=== PATIENT | male | born 1960 | race Caucasian/White ===

== ENCOUNTER 2023-03-20 13:18 | Emergency (ER) | payer BC ==
[2023-03-20] MEDS ORDERED: Sodium Chloride 0.9% 10 ML Syringe FLUSH PRN (13:39)
[2023-03-20 13:41] VITALS: BP 142/85; PULSE 99
[2023-03-20] MEDS ORDERED: Ketorolac 30 MG/ML SDV IVPUSH ONE (13:43)
[2023-03-20] MEDS ORDERED: Sodium Chloride 0.9% 1,000 ML IV ONE (13:43)
[2023-03-20 14:05] LABS: BASOPHILS PERCENT AUTO 0.4 % (0.0-1.0); EOSINOPHILS PERCENT AUTO 1.1 % (1.0-3.0); HEMATOCRIT 48.4 % (40.0-54.0); HEMOGLOBIN 16.1 g/dL (14.0-18.0); LYMPHOCYTES PERCENT AUTO 17.6 % (20.5-50.1); MEAN CORPUSCULAR HEMOGLOBIN 29.9 pg (27.0-34.0); MEAN CORPUSCULAR HGB CONC 33.3 g/dL (33.0-35.0); MONOCYTES PERCENT AUTO 7.9 % (2-8); PLATELET COUNT,PLT 346 10^3/uL (150-450); RED BLOOD CELL COUNT 5.38 10^6/uL (4.6-6.2)
[2023-03-20 14:20] LABS: A/G RATIO 0.9; ALANINE AMINOTRANSFERASE,ALT 26 U/L (16-63); ALBUMIN 3.9 g/dL (3.4-5.0); ALKALINE PHOSPHATASE 62 U/L (46-116); ASPARTATE AMNIOTRANSFERASE,AST 22 U/L (15-37); BILIRUBIN TOTAL 0.6 mg/dL (0.2-1.0); BLOOD UREA NITROGEN,BUN 21 mg/dL (7-18); BUN/CREATININE RATIO 21.9 (No establ ref range); CALCIUM 9.4 mg/dL (8.5-10.1); CARBON DIOXIDE,CO2 28 mmol/L (21-32); CHLORIDE,CL 97 mmol/L (98-107); CREATININE 0.96 mg/dL (0.70-1.30); EST CRCL DRUG DOSING (CG) 94.13 mL/min; GLUCOSE RANDOM 118 mg/dL (70-99); MAGNESIUM 2.1 mg/dL (1.8-2.4); PROTEIN TOTAL,TP 8.3 g/dL (6.4-8.2); SODIUM,NA 138 mmol/L (136-145)
[2023-03-20 14:24] LABS: C-REACTIVE PROTEIN < 0.50 ng/dL (<=0.50); ESTIMATED GFR 89 mL/min (>=60); LACTIC ACID 2.7 mmol/L (0.4-2.0)
[2023-03-20 14:37] LABS: CORONAVIRUS COVID-19 NAA NEGATIVE (NEGATIVE); INFLUENZA A NAA NEGATIVE (NEGATIVE); INFLUENZA B NAA NEGATIVE (NEGATIVE)
[2023-03-20] MEDS ORDERED: cefTRIAXone 2 GM Vial IVPUSH ONE (14:42)
[2023-03-20] MEDS ORDERED: Oxymetazoline 0.05% Nasal Spray 30 ML Bottle NAS ONE (14:43)
[2023-03-20] MEDS ORDERED: Take Home: Doxycycline 100 MG Cap, 4 Cap Pack PO ONE (14:49)
== END 2023-03-20 15:04 | disposition home or self-care (01) ==
LOC: DL.ED 13:18
DX: J01.00 Acute maxillary sinusitis, unspecified (principal); E11.9 Type 2 diabetes mellitus without complications; Z88.8 Allergy status to other drugs, medicaments and biological substances; Z79.82 Long term (current) use of aspirin; Z79.899 Other long term (current) drug therapy; Z79.84 Long term (current) use of oral hypoglycemic drugs; Z20.822 Contact with and (suspected) exposure to COVID-19
CPT/HCPCS: 0240U; 36415; 80053; 83605; 83735; 85025; 86140; 96361; 96374; 96375; 99284; A9270; J0696; J1885; J7030; J3490

== ENCOUNTER 2023-03-25 07:00 | Emergency (ER) | payer BC ==
[2023-03-25 07:10] LABS: BASOPHILS PERCENT AUTO 0.2 % (0.0-1.0); EOSINOPHILS PERCENT AUTO 0.7 % (1.0-3.0); HEMATOCRIT 43.5 % (40.0-54.0); HEMOGLOBIN 14.5 g/dL (14.0-18.0); LYMPHOCYTES PERCENT AUTO 17.3 % (20.5-50.1); MEAN CORPUSCULAR HEMOGLOBIN 30.1 pg (27.0-34.0); MEAN CORPUSCULAR HGB CONC 33.3 g/dL (33.0-35.0); MEAN CORPUSCULAR VOLUME 90.4 fL (80-100); MONOCYTES PERCENT AUTO 6.3 % (2-8); NEUTROPHILS PERCENT AUTO 75.5 % (42.2-75.2); PLATELET COUNT,PLT 314 10^3/uL (150-450); RED BLOOD CELL COUNT 4.81 10^6/uL (4.6-6.2); WHITE BLOOD CELL COUNT,WBC 10.8 10^3/uL (5.0-10.0)
[2023-03-25 07:27] VITALS: BP 133/76; PULSE 87
[2023-03-25] MEDS ORDERED: Factor IX Complex Human 500 UNIT VIAL IV ONE (07:33)
[2023-03-25] MEDS ORDERED: FACTOR IX COMPLEX HUMAN 2000 UNIT ONE (07:47)
[2023-03-25 07:50] LABS: A/G RATIO 0.9; ALANINE AMINOTRANSFERASE,ALT 25 U/L (16-63); ALBUMIN 3.5 g/dL (3.4-5.0); ALKALINE PHOSPHATASE 52 U/L (46-116); ANION GAP 13.8 mEq/L (7-13); ASPARTATE AMNIOTRANSFERASE,AST 19 U/L (15-37); BILIRUBIN TOTAL 0.5 mg/dL (0.2-1.0); BLOOD UREA NITROGEN,BUN 22 mg/dL (7-18); BUN/CREATININE RATIO 22.9 (No establ ref range); CARBON DIOXIDE,CO2 30 mmol/L (21-32); CHLORIDE,CL 99 mmol/L (98-107); CREATININE 0.96 mg/dL (0.70-1.30); ESTIMATED GFR 89 mL/min (>=60); GLUCOSE RANDOM 107 mg/dL (70-99); POTASSIUM,K 3.8 mmol/L (3.5-5.1); PROTEIN TOTAL,TP 7.4 g/dL (6.4-8.2)
[2023-03-25 07:51] LABS: C-REACTIVE PROTEIN < 0.50 ng/dL (<=0.50); ETHANOL BLOOD MEDICAL < 3 mg/dL (0); SODIUM,NA 139 mmol/L (136-145)
[2023-03-25 07:53] LABS: LACTIC ACID 1.8 mmol/L (0.4-2.0)
[2023-03-25] MEDS ORDERED: Factor IX Complex Human 500 UNIT ONE (07:55)
[2023-03-25] MEDS ORDERED: Factor IX Complex Human 500 UNIT VIAL IVPUSH ONE (08:00)
== END 2023-03-25 07:45 ==
LOC: DL.ED 07:00
DX: I62.00 Nontraumatic subdural hemorrhage, unspecified (principal); I10 Essential (primary) hypertension; E11.9 Type 2 diabetes mellitus without complications; Z88.5 Allergy status to narcotic agent; Z86.16 Personal history of COVID-19; Z79.899 Other long term (current) drug therapy
CPT/HCPCS: 36415; 70450; 72125; 80053; 80307; 82140; 82947; 83605; 83735; 84484; 85025; 86140; 93005; 93010; 96374; 99285; 99285-25; J7168

== ENCOUNTER 2023-06-30 13:18 | Emergency (ER) | payer BC ==
[2023-06-30] MEDS: Sodium Chloride 0.9% 1,000 ML IV ONE (13:45)
[2023-06-30] MEDS: Diltiazem 25 MG/5 ML SDV IVPUSH ONE (13:45)
[2023-06-30 13:50] VITALS: BP 98/73; PULSE 105
[2023-06-30] MEDS: Midazolam 1 MG/ML 2 ML SDV IVPUSH ONE (15:40)
== END 2023-06-30 14:30 | disposition home or self-care (01) ==
LOC: DL.ED 13:18
DX: I48.91 Unspecified atrial fibrillation (principal); I10 Essential (primary) hypertension; E11.9 Type 2 diabetes mellitus without complications; Z86.16 Personal history of COVID-19; Z88.5 Allergy status to narcotic agent; Z79.82 Long term (current) use of aspirin; Z79.84 Long term (current) use of oral hypoglycemic drugs; Z79.899 Other long term (current) drug therapy
CPT/HCPCS: 93010; 96374; 99284; 99284-25; J3490; J7030